=== PATIENT | female | born 1950 | race African-American/Black ===

== ENCOUNTER 2022-03-24 10:33 | Emergency (ER) | payer OTHER ==
[~2022-03-24] VITALS: Ht 160 cm; Wt 51.7 kg
--- NOTE | 2022-03-24 11:24 | NUR ---
BLOOD SPECIMEN COLLECTED AND SENT TO THE LAB
[2022-03-24 11:36] LABS: BASOPHILS # (AUTO) 0.1 K/uL (0.0-0.2); BASOPHILS % (AUTO) 1.3 % (0.0-2.0); EOSINOPHILS % (AUTO) 0.9 % (0.0-6.0); HEMATOCRIT 32 % (33-45); HEMOGLOBIN 10.1 g/dL (11.5-14.8); LYMPHOCYTES % (AUTO) 13.4 % (20.0-44.0); MEAN CORPUSCULAR HGB CONC 31 g/dl (31.0-36.0); MEAN CORPUSCULAR VOLUME 70 fL (82-100); MONOCYTES # (AUTO) 0.6 K/uL (0.1-1.30); MONOCYTES % (AUTO) 8.2 % (2.0-12.0); NEUTROPHILS # (AUTO) 5.5 K/uL (1.8-8.9); NEUTROPHILS % (AUTO) 76.2 % (43.0-81.0); PLATELET COUNT (AUTO) 554 K/uL (150-450); RED BLOOD CELL COUNT(AUTO) 4.63 MIL/uL (4.0-5.2); WHITE BLOOD COUNT (AUTO) 7.3 K/uL (4.3-11.0)
[2022-03-24 11:55] LABS: C-REACTIVE PROTEIN 1.1 mg/dL (0.0-0.9)
[2022-03-24] MEDS ORDERED: IOHEXOL-300 100 ML VIAL IV ONE (11:55)
[2022-03-24 11:56] LABS: CALCIUM, SERUM 8.6 mg/dL (8.5-10.1); CREATININE 0.9 mg/dL (0.6-1.3); POTASSIUM 4.1 mmol/L (3.5-5.1)
[2022-03-24 12:02] LABS: ALBUMIN 3.1 g/dL (3.4-5.0); BILIRUBIN,TOTAL 0.4 mg/dL (0.2-1.0); TOTAL PROTEIN, SERUM 8.7 g/dL (6.4-8.2)
[2022-03-24] MEDS ORDERED: ENOXAPARIN SODIUM 40 MG/0.4 ML DISP.SYRIN SQ ONE ×2 (14:00→14:05)
--- NOTE | 2022-03-24 14:30 | NUR ---
COVID SWAB COLLECTED AND SENT TO LAB
[2022-03-24] MEDS ORDERED: VANCOMYCIN 1 GM in IV D5W 250 ML IV ONE (15:30)
[2022-03-24] MEDS ORDERED: CEFEPIME 1 GM in IV D5W 50 ML IV ONE (15:30)
--- NOTE | 2022-03-24 18:47 | NUR ---
PT GOING TO [facility] ROOM 214. NUMBER FOR REPORT [phone] [facility] WILL CALL BACK FOR TRANSPORT ETA.
--- NOTE | 2022-03-24 19:15 | NUR ---
[facility] TO [facility] ETA [id number]
[2022-03-24 20:21] VITALS: BP 114/71
--- NOTE | 2022-03-24 20:22 | NUR ---
REPORT GIVEN TO PRECIOUS ESPARZA FROM [facility]
--- NOTE | 2022-03-24 20:41 | NUR ---
[facility] FOR TRANSPORT TO [facility].
== END 2022-03-24 22:13 | disposition short-term general hospital (02) ==
LOC: ER 10:36
DX: N63.0 Unspecified lump in unspecified breast (principal); L98.491 Non-pressure chronic ulcer of skin of other sites limited to breakdown of skin; I82.622 Acute embolism and thrombosis of deep veins of left upper extremity; R22.1 Localized swelling, mass and lump, neck; C79.51 Secondary malignant neoplasm of bone
CPT/HCPCS: 99291; 96365; 71260; 93971; 96367; 87426; 85025; 87040 ×2; 83605; 85652; 36415; 80053; 86140; 96372; J3370; J7060; J1650; J0692; Q9967; C9803